=== PATIENT | male | born 1950 | race Caucasian/White ===

== ENCOUNTER 2019-04-16 16:48 | Emergency (ER) | payer MEDICARE, OTHER ==
[~2019-04-16] VITALS: Ht 180.3 cm; Wt 110.5 kg
[2019-04-16 17:21] LABS: BASOPHILS % (AUTO) 0 % (0-10); EOSINOPHILS % (AUTO) 4 % (0-10); HEMATOCRIT 44 % (40-54); HEMOGLOBIN 14.7 G/DL (13.3-17.7); LYMPHOCYTES % (AUTO) 31 % (12-44); MEAN CORPUSCULAR HEMOGLOBIN 31 PG (25-34); MEAN CORPUSCULAR HGB CONC 33 G/DL (32-36); MEAN CORPUSCULAR VOLUME 93 FL (80-99); MEAN PLATELET VOLUME 10.5 FL (7.4-10.4); MONOCYTES % (AUTO) 6 % (0-12); NEUTROPHILS # (AUTO) 4.1 X 10^3 (1.8-7.8); NEUTROPHILS % (AUTO) 59 % (42-75); PLATELET COUNT 199 10^3/uL (130-400); RED CELL DISTRIBUTION WIDTH 12.7 % (10.0-14.5); WHITE BLOOD COUNT 6.9 10^3/uL (4.3-11.0)
[2019-04-16] MEDS ORDERED: NS IV 500 ML 500 ML IV ONE (17:21)
--- NOTE | 2019-04-16 17:21 | ED Cardiac General ---
History of Present Illness General Chief Complaint: Cardiac/General Problems Stated Complaint: HEART ISSUES Source: patient History of Present Illness Date Seen by Provider: Apr 16, 2019 Time Seen by Provider: 16:55 Initial Comments 69-year-old male presents with what he feels like a slow heartbeat and "pauses" patient also reports he feels "weak kneed today" he denies any chest pain, nausea, vomiting, shortness of breath. Patient just reports that throughout the days had this generalized malaise and not feeling well. Patient with no other systemic complaints patient does report that he started hydrocodone and Flexeril this morning due to some back pain. Patient reports his first doses were this morning. Reports he had back pain after traveling in the back of a car for 4200 miles. Allergies and Home Medications Allergies Coded Allergies: Penicillins (Verified Allergy, Unknown, 04/16/19) Patient Home Medication List Home Medication List Reviewed: Yes Review of Systems Review of Systems Constitutional: malaise, weakness EENTM: No Symptoms Reported Cardiovascular: Denies Chest Pain; Irregular Heart Rate Gastrointestinal: No Symptoms Reported Skin: no symptoms reported Endocrine: No Symptoms Reported Past Ptppjbv-Mkbzsh-Fihhsf Hx Past Med/Social Hx: Reviewed Nursing Past Med/Soc Hx Patient Social History Recent Foreign Travel: No Contact w/Someone Who Travel: No Physical Abuse: No Sexual Abuse: No Mistreated: No Fear: No Physical Exam Vital Signs Vital Signs - First Documented 04/16/19 16:53 Temp 37.6 Pulse 69 Resp 16 B/P (MAP) 176/98 (124) Pulse Ox 97 O2 Delivery Room Air Capillary Refill : Height, Weight, BMI Height: '" Weight: lbs. oz. kg; BMI Method: General Appearance: WD/WN HEENT: PERRL/EOMI Respiratory: Chest Non Tender, Lungs Clear, Normal Breath Sounds Cardiovascular: Regular Rate, Rhythm, No Edema, Normal Peripheral Pulses Extremity: Normal Capillary Refill Neurologic/Psychiatric: Alert, Oriented x3, No Motor/Sensory Deficits, Normal Mood/Affect Skin: Normal Color Progress/Results/Core Measures Results/Orders Lab Results Laboratory Tests Test 04/16/19 17:10 Range/Units White Blood Count 6.9 4.3-11.0 10^3/uL Red Blood Count 4.76 4.35-5.85 10^6/uL Hemoglobin 14.7 13.3-17.7 G/DL Hematocrit 44 40-54 % Mean Corpuscular Volume 93 80-99 FL Mean Corpuscular Hemoglobin 31 25-34 PG Mean Corpuscular Hemoglobin Concent 33 32-36 G/DL Red Cell Distribution Width 12.7 10.0-14.5 % Platelet Count 199 130-400 10^3/uL Mean Platelet Volume 10.5 H 7.4-10.4 FL Neutrophils (%) (Auto) 59 42-75 % Lymphocytes (%) (Auto) 31 12-44 % Monocytes (%) (Auto) 6 0-12 % Eosinophils (%) (Auto) 4 0-10 % Basophils (%) (Auto) 0 0-10 % Neutrophils # (Auto) 4.1 1.8-7.8 X 10^3 Lymphocytes # (Auto) 2.1 1.0-4.0 X 10^3 Monocytes # (Auto) 0.4 0.0-1.0 X 10^3 Eosinophils # (Auto) 0.2 0.0-0.3 10^3/uL Basophils # (Auto) 0.0 0.0-0.1 10^3/uL Prothrombin Time 12.8 12.2-14.7 SEC INR Comment 0.9 0.8-1.4 Activated Partial Thromboplast Time 28 24-35 SEC Sodium Level 139 135-145 MMOL/L Potassium Level 4.2 3.6-5.0 MMOL/L Chloride Level 102 98-107 MMOL/L Carbon Dioxide Level 26 21-32 MMOL/L Anion Gap 11 5-14 MMOL/L Blood Urea Nitrogen 20 H 7-18 MG/DL Creatinine 1.35 H 0.60-1.30 MG/DL Estimat Glomerular Filtration Rate 53 BUN/Creatinine Ratio 15 Glucose Level 99 70-105 MG/DL Calcium Level 9.3 8.5-10.1 MG/DL Corrected Calcium 8.5-10.1 MG/DL Magnesium Level 2.0 1.6-2.4 MG/DL Total Bilirubin 0.3 0.1-1.0 MG/DL Aspartate Amino Transf (AST/SGOT) 30 5-34 U/L Alanine Aminotransferase (ALT/SGPT) 26 0-55 U/L Alkaline Phosphatase 30 L 40-136 U/L Troponin I < 0.30 <0.30 NG/ML Total Protein 7.5 6.4-8.2 GM/DL Albumin 4.6 H 3.2-4.5 GM/DL My Orders Orders - KANIKA TONY DO Cbc With Automated Diff (04/16/19 17:06) Magnesium (04/16/19 17:06) Chest 1 View Ap/Pa Only (04/16/19 17:06) Ekg Tracing (04/16/19 17:06) Comprehensive Metabolic Panel (04/16/19 17:06) Protime With Inr (04/16/19 17:) Partial Thromboplastin Time (04/16/19 17:) Monitor-Rhythm Ecg Trace Only (04/16/19 17:06) Ed Iv/Invasive Line Start (04/16/19 17:06) Troponin I Fs (04/16/19 17:06) Ua Culture If Indicated (04/16/19 17:06) Ed Iv/Invasive Line Start (04/16/19 17:21) Ed Iv/Invasive Line Start (04/16/19 17:21) Ns Iv 500 Ml (Sodium Chloride 0.9%) (04/16/19 17:21) Magnesium 1 Gm/100 Ml Ivpb (Magnesium Schwartz (04/16/19 17:30) Medications Given in ED Current Medications Medications Dose Ordered Sig/Bar Route Start Time Stop Time Status Last Admin Dose Admin Sodium Chloride 500 ml @ 0 mls/hr Q0M ONCE IV 04/16/19 17:21 04/16/19 17:27 DC 04/16/19 17:32 999 MLS/HR Vital Signs/I&O 04/16/19 16:53 Temp 37.6 Pulse 69 Resp 16 B/P (MAP) 176/98 (124) Pulse Ox 97 O2 Delivery Room Air Progress Progress Note : Time: 17:56 Progress Note Patient's symptoms consistent with some mild dehydration and him feeling his PVCs. Patient feeling better after treatment. He will be discharged home in stable condition. I did discuss with him need to follow-up with his primary care physician decide if he wants to continue the Flexeril and hydrocodone. I recommend he follow up with a primary care next week regardless for recheck of his symptoms. Initial ECG Impression Date: Apr 16, 2019 Initial ECG Impression Time: 16:57 Initial ECG Rate: 65 Initial ECG Rhythm: Normal Sinus, PVC Comment non specific ekg changes. Departure Impression Primary Impression: Dehydration Additional Impressions: PVCs (premature ventricular contractions) Medication side effects Disposition: 01 HOME, SELF-CARE Condition: Stable Departure-Patient Inst. Referrals: LUZ CHACON MD (PCP) Primary Care Physician Patient Instructions: Ventricular Premature Beats, Dehydration, Adult (DC), Side Effects From Medicines KANIKA TONY DO Apr 16, 2019 17:21
[2019-04-16 17:22] LABS: EOSINOPHILS # (AUTO) 0.2 10^3/uL (0.0-0.3); LYMPHOCYTES # (AUTO) 2.1 X 10^3 (1.0-4.0); MONOCYTES # (AUTO) 0.4 X 10^3 (0.0-1.0)
--- NOTE | 2019-04-16 17:25 | Diagnostic Imaging Report ---
INDICATION: Arrhythmia. Frontal chest obtained at 4:54 p.m. FINDINGS: Heart and mediastinal silhouette are normal in appearance. The lungs are clear. There is no pneumothorax or pleural fluid. IMPRESSION: Negative chest. Dictated by: Dictated on workstation # [id number]
[2019-04-16 17:31] LABS: INR 0.9 (0.8-1.4); PROTHROMBIN TIME PATIENT 12.8 SEC (12.2-14.7)
[2019-04-16] MEDS: MAGNESIUM 1 GM/100 ML IVPB 100 ML IV SCH ×2 (17:32→18:32)
[2019-04-16 17:43] LABS: ALANINE AMINOTRANSFERASE 26 U/L (0-55); ALKALINE PHOSPHATASE 30 U/L (40-136); BILIRUBIN,TOTAL 0.3 MG/DL (0.1-1.0); BUN/CREATININE RATIO 15; CALCIUM 9.3 MG/DL (8.5-10.1); CARBON DIOXIDE 26 MMOL/L (21-32); CHLORIDE 102 MMOL/L (98-107); CREATININE SERUM 1.35 MG/DL (0.60-1.30); GFR ESTIMATED 53; GLUCOSE 99 MG/DL (70-105); POTASSIUM 4.2 MMOL/L (3.6-5.0); SODIUM 139 MMOL/L (135-145); TOTAL PROTEIN 7.5 GM/DL (6.4-8.2)
[2019-04-16 17:44] LABS: ALBUMIN 4.6 GM/DL (3.2-4.5)
[2019-04-16 18:48] VITALS: BP 110/63
== END 2019-04-16 18:47 | disposition home or self-care (01) ==
LOC: ER FS 16:49
DX: E86.0 Dehydration (principal); I49.3 Ventricular premature depolarization; T50.905A Adverse effect of unspecified drugs, medicaments and biological substances, initial encounter; Z88.0 Allergy status to penicillin
CPT/HCPCS: 36415; 71045; 80053; 83735; 84484; 85025; 85610; 85730; 93005; 93041

== ENCOUNTER → 2020-09-08 | Outpatient (CLI) | payer SELFPAY ==
--- NOTE | 2020-09-08 14:10 | Diagnostic Imaging Report ---
EXAMINATION: CT calcium scoring without contrast. TECHNIQUE: Multiple contiguous axial images were obtained through the chest without the use of intravenous contrast for purposes of calcium scoring. All CT scans use one or more of the following dose optimizing techniques: automated exposure control, MA and/or KvP adjustment based on a patient size and exam type, or iterative reconstruction. HISTORY: HIGH CHOLESTEROL COMPARISON: None available. FINDINGS: The calculated coronary artery calcium score is 324. There is no edema or pneumonia. No pleural effusion. No pneumothorax. There is a 6 mm average diameter nodule in the superior segment of the left lower lobe. There is 3 mm average diameter nodule in the right lower lobe. Heart size is normal. No pericardial effusion. Aorta is normal in caliber. There is no axillary lymphadenopathy. There is no mediastinal lymphadenopathy. Limited views of the upper abdomen are unremarkable. There are no suspicious osseus lesions. IMPRESSION: 1. Calculated coronary artery calcium score of 324, placing the patient between the 50th and 75th percentile for patients of the same age. 2. Pulmonary nodules measuring up to 6 mm in the left lower lobe. According to the Fleischner Society guidelines: In a low risk patient, no routine follow up is recommended. In a high risk patient, consider optional CT at 12 months. Dictated by: Dictated on workstation # [id number]
== END ==
LOC: RAD FS 13:24
PROVIDERS: ATTEND Family Medicine
DX: E78.00 Pure hypercholesterolemia, unspecified (principal); R91.1 Solitary pulmonary nodule
CPT/HCPCS: 75571

== ENCOUNTER → 2021-05-04 | Outpatient (CLI) | payer MEDICARE, OTHER ==
[~2021-05-04] MED LIST: CATHETER FLUSH 10 ML SYR IV PRN; HOLD METFORMIN - RECEIVED CONTRAST 20 ML VIAL IV SCH; IOHEXOL 350 MG/ML 100 ML (OMNIPAQUE 350) VIAL IV ONE; NS 100 ML (IVPB) BAG IV ONE
[2021-05-04 10:18] LABS: BILIRUBIN,TOTAL 0.6 MG/DL (0.1-1.0); CALCIUM 9.3 MG/DL (8.5-10.1); CREATININE SERUM 1.28 MG/DL (0.60-1.30); POTASSIUM 4.6 MMOL/L (3.6-5.0)
[2021-05-04 10:19] LABS: ALBUMIN 4.5 GM/DL (3.2-4.5); TOTAL PROTEIN 7.6 GM/DL (6.4-8.2)
--- NOTE | 2021-05-04 11:13 | Diagnostic Imaging Report ---
TECHNIQUE: CT of the head was performed with and without contrast. CT neck was performed with contrast. Sagittal and coronal reformats were obtained and reviewed. Dose reduction techniques were utilized. REASON FOR EXAM: Left-sided head and neck pain. Pain when opening the mouth. COMPARISON: None. FINDINGS: CT head: No large acute territorial ischemia, mass, or hemorrhage. No abnormal enhancement is seen in the brain. No midline shift or mass effect. The ventricles and cortical sulci are mildly prominent. The basilar cisterns are patent and unremarkable. The orbits are normal. Paranasal sinuses are normal. Mastoid air cells are clear. No soft tissue abnormality is seen. No osseus lesions or fractures are seen. CT NECK: The posterior nasopharynx and oropharynx demonstrate appropriate symmetry. There is no displacement of the parapharyngeal fat planes. There is no abnormal process evident within the prevertebral or retropharyngeal space. There is no evidence of abnormal thickening of the epiglottis or aryepiglottic folds. The vocal folds appear symmetric. The parotid, submandibular and thyroid gland are unremarkable. No pathologically enlarged cervical lymph nodes are evident. No focal inflammatory changes are demonstrated. No soft tissue mass or fluid collection demonstrated. Atherosclerotic plaque is seen in the bilateral carotid bulbs and proximal internal carotid arteries. There is suggestion of significant stenosis in the proximal right ICA. The visualized lung apices are clear. No acute abnormalities are seen in the cervical spine. The craniocervical junction is intact. A focal sclerotic lesion is seen in the right mandibular condyle measuring 0.8 x 0.5 cm. A smaller lesion is seen in the more lateral aspect of the right mandibular condyle measuring 0.4 cm with sclerotic margins. There is faint sclerosis in the left mandibular condyle medially measuring 0.8 cm. The bilateral TMJs demonstrate normal articulation. No evidence of acute fracture in the mandible. IMPRESSION: 1. No large acute territorial ischemia, mass, or hemorrhage. No abnormal enhancement in the brain. 2. Sclerotic lesions in the bilateral mandibular condyles, with the most prominent lesion in the right mandibular condyle. These are nonspecific and may represent benign versus metastatic lesions. Recommend correlation with patient history and laboratory values and, if indicated, nuclear medicine bone scan to further evaluate. 3. No acute fracture in the mandible. The bilateral TMJs demonstrate normal alignment. 4. No mass or fluid collection in the neck. No pathologically enlarged lymphadenopathy in the neck. 5. Suggestion of significant stenosis in the proximal right ICA. Consider dedicated imaging with carotid ultrasound or CTA of the neck to further evaluate. Dictated by: Dictated on workstation # [id number]
== END ==
LOC: RAD FS 09:14
PROVIDERS: ATTEND Nurse Practitioner Family
DX: M27.8 Other specified diseases of jaws (principal); R22.1 Localized swelling, mass and lump, neck
CPT/HCPCS: 36415; 70470; 70491; 80053

== ENCOUNTER → 2021-05-11 | Outpatient (CLI) | payer MEDICARE, OTHER ==
--- NOTE | 2021-05-11 16:21 | Diagnostic Imaging Report ---
INDICATION: 71-year-old male, throat pain x3 weeks. History of left-sided head and neck pain.. TECHNIQUE: The patient was administered 23.9 mCi technetium 99m MDP intravenously. After an approximately three-hour delay, anterior and posterior whole-body planar images are obtained. CORRELATION STUDY: None FINDINGS: Bony calvarium appearing unremarkable. No definitive abnormal uptake suggested in and around the maxillofacial region apart from likely physiologic uptake over the nose. There is symmetric uptake about both bilateral shoulder girdles as well as sternoclavicular joints. Ribs and sternum unremarkable. Mild asymmetric uptake about the lower thoracic spine. Additionally, there is more focal uptake appearing to be approximately at the level between the left 6th and 7th costovertebral margins, nonspecific. Sacrum and bilateral hemipelves are unremarkable. Slightly more prominent uptake suggested about the right proximal tibia. Uptake about the region of the great toes, right greater than left along with minimal uptake in the left mid foot region medially. Degenerative-type uptake about the hand and wrist. IMPRESSION: 1. No abnormal uptake suggested about the bony calvarium and/or maxillofacial region. 2. Slight asymmetric uptake about the lower thoracic spine as well as the left costovertebral margin, nonspecific. Correlation for symptoms. Dictated by: Dictated on workstation # [id number]
== END ==
LOC: CARD 11:46
PROVIDERS: ATTEND Nurse Practitioner Family
DX: I65.29 Occlusion and stenosis of unspecified carotid artery (principal); K11.8 Other diseases of salivary glands
CPT/HCPCS: 78306; A9503